=== PATIENT | male | born 1975 | race African-American/Black ===

== ENCOUNTER → 2016-08-13 | Outpatient (CLI) | payer OTHER ==
[~2016-08-13] VITALS: Ht 170.2 cm; Wt 83.9 kg
[2016-08-13 12:34] VITALS: BP 142/62
--- NOTE | 2016-08-13 15:03 | RAD ---
EXAM: Ultrasound-guided fine-needle aspiration of a right thyroid nodule. HISTORY: Right thyroid nodule. Ultrasound-guided fine-needle aspiration is requested. COMPARISON: None. FINDINGS: The procedure along with its risks and benefits were expanded the patient. He agreed to proceed. A timeout procedure was performed. Sonographic images of the right thyroid lobe reveal a solid and cystic nodule measuring 3.3 x 3.1 cm. The overlying skin was sterilely prepped and infiltrated with 1% lidocaine for local anesthesia. Under ultrasound guidance, 4 passes were made into the solid portion of the nodule using 25-gauge needles. Instrumentation was withdrawn and a sterile dressing placed. There were no immediate complications. IMPRESSION: 1. Successful ultrasound-guided fine-needle aspiration of a right thyroid nodule.
--- NOTE | 2016-08-14 15:36 | PATHOLOGY ---
CYTOPATHOLOGY REPORT CLINICAL HISTORY: Right thyroid nodule. SPECIMEN(S) RECEIVED: A.Fine needle aspiration, Right thyroid FINAL DIAGNOSIS: Right thyroid nodule fine needle aspiration: - [place] Category: Benign - Clusters of follicular epithelial cells, macrophages, colloid, and blood identified. COMMENT: The findings are consistent with an adenomatous nodule. Correlate with clinical and radiographic findings. (JPM:mgnaveed; d/t: 08/14/16) PATHOLOGIST: Billy Manuel M.D. REPORT ELECTRONICALLY SIGNED BY: Billy Manuel M.D. DATE/TIME: 08/14/2016 15:35 GROSS PATHOLOGY: Fine needle aspiration, Right thyroid: The specimen is labeled "Rah Frias" and consists of two fixed slides, two air dried slides, two H and E slides. Thirty mL of clear red fluid in CytoLyt from the needle rinse is also submitted and One ThinPrep slide and a cell block were prepared from this material. (clt 08.13.2016) Also received is the RNARetain vial which will be held for molecular studies if needed. REAL ESTATE LOAN OFFICER(S): FAIZAN Cee([facility]) INITIAL CPT CODE(S): A; 83963, 15118 Professional services performed [place] [facility] [place] [address] Technical services performed by [facility] [employer] at [address] [place] [address], [address] [address]. PATIENT: RAH FRIAS /AGE: 611/12/1975 (Age: 40) SEX: M PATIENT #: [id number] ALT CASE #: SPECIMEN COLLECTION DATE: 08/13/2016 SPECIMEN RECEIVED DATE: 08/13/[address] [facility] [address] [place] [address], [address] [place] [address] PHONE: [phone] DIRECTOR: Gold Sanchez M.D. * * * END OF REPORT * * *
== END | disposition home or self-care (01) ==
LOC: US 12:05
PROVIDERS: ATTEND Family Medicine
DX: E04.1 Nontoxic single thyroid nodule (principal)
CPT/HCPCS: 60300; 76942

== ENCOUNTER 2016-08-19 10:55 | Emergency (ER) | payer OTHER ==
[~2016-08-19] VITALS: Ht 170.2 cm; Wt 84.4 kg
[2016-08-19 11:05] VITALS: BP 162/80
[2016-08-19] MEDS ORDERED: NAPR550T PO (11:22)
[2016-08-19] MEDS ORDERED: ORPH100T PO (11:22)
[2016-08-19] MEDS ORDERED: HYDR-971 PO (11:22)
--- NOTE | 2016-08-19 11:23 | PHYS DOC ---
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 States he did fill a pull and sudden onset of pain. He states that he took 400 mg of ibuprofen at provided very little relief area. Patient denies any previous injuries and surgery. He denies any history of neuromuscular disease. Patient denies any shortness of breath. Patient denies any urinary discomfort or hematuria. Review of Systems Review of Systems Constitutional: Denies fever or chills [] Eyes: Denies change in visual acuity, redness, or eye pain [] HENT: Denies nasal congestion or sore throat [] Respiratory: Denies cough or shortness of breath [] Cardiovascular: No additional information not addressed in HPI [] GI: Denies abdominal pain, nausea, vomiting, bloody stools or diarrhea [] : Denies dysuria or hematuria [] Musculoskeletal: Denies back pain or joint pain [] Integument: Denies rash or skin lesions [] Neurologic: Denies headache, focal weakness or sensory changes [] Endocrine: Denies polyuria or polydipsia [] Allergies Allergies Allergies Coded Allergies Type Severity Reaction Last Updated Verified oxycodone Allergy Unknown Nausea and Vomiting 08/13/16 Yes Physical Exam Physical Exam Constitutional: Well developed, well nourished, mild distress, non-toxic appearance. [] HENT: Normocephalic, atraumatic, bilateral external ears normal, oropharynx moist, no oral exudates, nose normal. [] Eyes: PERRLA, EOMI, conjunctiva normal, no discharge. [] Neck: Normal range of motion, no tenderness, supple, no stridor. [] Cardiovascular:Heart rate regular rhythm, no murmur [] Lungs & Thorax: Patient shows no evidence of respiratory distress or respiratory fatigue. There is no obvious evidence of deformity to the patient's right lateral mid back/chest wall. There is tenderness to palpation to the mid muscle belly region of the latissimus dorsi. There is no palpable defect, deformity or spasm. Abdomen: Bowel sounds normal, soft, no tenderness, no masses, no pulsatile masses. [] Skin: Warm, dry, no erythema, no rash. [] Back: No tenderness, no CVA tenderness. [] Extremities: No tenderness, no cyanosis, no clubbing, ROM intact, no edema. [] Neurologic: Alert and oriented X 3, normal motor function, normal sensory function, no focal deficits noted. [] Psychologic: Affect normal, judgement normal, mood normal. [] EKG EKG [] Radiology/Procedures Radiology/Procedures [] Course & Med Decision Making Course & Med Decision Making Pertinent Labs and Imaging studies reviewed. (See chart for details) [] Dragon Disclaimer Dragon Disclaimer This electronic medical record was generated, in whole or in part, using a voice recognition dictation system. Departure Departure Impression: Primary Impression: Strain of latissimus dorsi muscle Disposition: HOME, SELF-CARE Condition: GOOD Referrals: ISABELA VILLAREAL DO (PCP) Patient Instructions: Muscle Strain, [id number] Additional Instructions: 1. You have strained your left latissimus dorsi muscle. 2. Review the discharge instructions provided for self-care and reasons to return the emergency department. 3. Take the medication as prescribed. 4. Contact your primary care doctor's office in the morning to schedule follow- up appointment to be reevaluated by Saturday or . Scripts Orphenadrine Citrate 100 Mg Tablet.er100 Mg PO BID #14 Prov:MACK ALLEN 08/19/16 Hydrocodone/Apap 5-325 (Tranquillity 5-325 Tablet)1 Each Tablet1 Tab PO PRN Q6HRS PRN PAIN #10 TAB Prov:MACK ALLEN 08/19/16 Naproxen Sodium (Anaprox Ds)550 Mg Ofbasv716 Mg PO BID #20 Prov:MACK ALLEN 08/19/16 MACK ALLEN Aug 19, 2016 11:23
[2016-08-19] MEDS ORDERED: KETOROLAC TROMETHAMINE 60 MG/2 ML SYRINGE. IM ONE (11:45)
== END 2016-08-19 11:40 | disposition home or self-care (01) ==
LOC: ER 10:55
DX: S29.012A Strain of muscle and tendon of back wall of thorax, initial encounter (principal); Z88.5 Allergy status to narcotic agent; X50.0XXA Overexertion from strenuous movement or load, initial encounter; Y93.89 Activity, other specified; Y99.8 Other external cause status; Y92.89 Other specified places as the place of occurrence of the external cause
CPT/HCPCS: 96372; 99283; J1885